=== PATIENT | female | born 1960 | race Caucasian/White ===

== ENCOUNTER 2021-08-09 17:25 | Emergency (ER) | payer OTHER, SELFPAY ==
--- NOTE | ~2021-08-09 | XR_ITS ---
EXAMINATION: XR chest 2V CLINICAL INFORMATION: Chest pain COMPARISON: No prior chest x-ray available in our system for comparison at the time of this dictation. TECHNIQUE: XR chest 2V Lungs and Susanna: Both lungs are clear. Pleura: Normal. Costophrenic angles are sharp. No pneumothorax. Heart: The heart is normal in size. Mediastinum: The mediastinum is within normal limits.. Bones: Skeletal structures included are normal for patient's age. XR/XR chest 2V IMPRESSION: Normal chest x-ray.
[2021-08-09 17:33] VITALS: BP 165/82; PULSE 79; RESP 16; TEMP 36.7; O2SAT 100; BMI 27.1
--- NOTE | 2021-08-09 17:33 | ECG_ITS ---
Test Reason : CP Blood Pressure : / mmHG Vent. Rate : 077 BPM Atrial Rate : 077 BPM P-R Int : 170 ms QRS Dur : 088 ms QT Int : 374 ms P-R-T Axes : 065 024 050 degrees QTc Int : 423 ms Normal sinus rhythm Normal ECG No previous ECGs available Referred By: Generic ED Physician Electronically Signed By:NOREEN DELA CRUZ MD
--- NOTE | 2021-08-09 18:01 | ED.CHESTPAIN ---
HPI - Chest Pain General Chief Complaint: Chest Pain Stated Complaint: chest tightness/ Time Seen by Provider: 08/09/21 17:40 Source: patient Mode of arrival: ambulatory Limitations: no limitations History of Present Illness HPI narrative: Patient presents to the emergency department for evaluation of chest pain. She reports just prior to arrival she was at the grocery store when she developed a sudden onset of chest tightness and burning that she felt radiates to the right side of her jaw/neck/ear. At that time her pain was 10/10. Currently she reports 5/10 chest pain described as a diffuse anterior burning. She does state that she had not had the previous severe pain she would not be overly concerned about the pain she is feeling at this time. Earlier this week she was experiencing palpitations, was seen by her primary care provider, and states that it was thought to be secondary to anxiety. She denies feeling anxious at the time her symptom onset today. She also reports that she began taking hydrochlorothiazide 1 month ago and is uncertain whether this has anything to do with her symptoms. Denies recently feeling sick, fevers, chills, nasal congestion, sore throat, ear pain, shortness of breath, difficulty breathing, nausea, vomiting, abdominal pain, dysuria, urinary frequency, numbness or tingling in the extremities, pain in the extremities, generalized weakness. Related Data Allergies Allergy/AdvReac Type Severity Reaction Status Date / Time No Known Allergies Allergy Verified 08/09/21 17:59 Review of Systems Review of Systems: Constitutional : No Weight loss, No Fever, No Chills ENT/Mouth :? No sore throat, No Rhinorrhea Eyes: No Eye Pain, No Swelling Cardiovascular : pos Chest Pain, no SOB, no Dyspnea on Exertion, No Orthopnea, No Edema, No Palpitations Respiratory : No Cough, No Sputum Gastrointestinal : pos Nausea, No Vomiting, No Diarrhea, No abdominal Pain, No Hematochezia, No Melena Genitourinary : No Dysuria, No Urinary Frequency Musculoskeletal : No joint pain, No Myalgias, No Joint Swelling Skin : No Skin Lesions, No rash Neuro : No Weakness, No Numbness, No Dizziness, No Headache Psych : No Anxiety/Panic, No Depression Heme/Lymph: No Bruising, No Lymphadenopathy Endocrine : No Polyuria, No Polydipsia Yes all other systems are reviewed and are negative PMFSH Past Medical History Attestation statement: The following information was validated with the patient. Social History Social History Advance Directives: Yes Advance Directives Information Provided: No Advance Directives on File: No Patient : No Physical Exam Vital Signs: Vital Signs: Last Vital Signs Temp 98.0 F 08/09/21 17:33 Pulse 74 08/09/21 19:05 Resp 13 08/09/21 19:05 BP 144/78 H 08/09/21 19:05 Pulse Ox 100 08/09/21 19:05 BMI result Body Mass Index 27.1 Vital signs have been reviewed and appeared to be correct. Hypertensive? Heart rate normal.? Respiration rate normal. Temperature normal.? Oxygen saturation normal. Appearance: Alert.?Oriented to person, place and time. No acute distress.?Normal affect. Eyes: Pupils equal, round and reactive to light.? ENT: Pharynx normal.?? Neck: Normal inspection.? Neck supple.?? CVS: Heart sounds normal. Normal heart rate and rhythm.? Pulses normal.?? Respiratory: No respiratory distress.? Lung sounds clear to auscultation bilaterally?? Abdomen: Soft and non-tender. Normoactive bowel sounds. ?? Skin: Skin warm and dry.? Normal skin color.? ?? Extremities: No lower extremity edema.? Neuro: Moves all extremities spontaneously. Sensation intact bilaterally. CN II-XII intact. No focal neuro deficits. Ambulates with normal steady gait. Course Course Course Narrative: Patient is a 61-year-old with a past medical history of hypertension, hyperlipidemia, GERD presenting for evaluation of sudden onset chest pain. Will obtain CBC to evaluate for leukocytosis/ anemia, CMP to evaluate for abnormal electrolytes /abnormal renal function/ abnormal hepatic function, EKG and troponin to evaluate for ischemia/ACS. Chest x-ray to evaluate for consolidation/ infiltrate/ mass/ pulmonary congestion. Will trial Maalox with lidocaine for pain at this time. Reevaluation(s) Reevaluation #1: CBC is overall unremarkable. BMP is normal. Troponin <3.5, EKG reveals normal sinus rhythm no acute concerns for ischemia, HEART score 3. Will obtain delta troponin. Chest x-ray reveals no acute cardiopulmonary abnormalities. Time: 18:50 Reevaluation #2: Repeat troponin <3.5, therefore delta <50%, unlikely to be ACS. She reports pain has improved after receiving Maalox with lidocaine. She reports some mild discomfort that ?feels like indigestion . She remains hemodynamically stable, no additional concerns at this time. Respirations are regular even and nonlabored. I discussed all findings with patient and her . Advised that her symptoms may be secondary to acid reflux, however, given her past medical history of blood pressure and high cholesterol she should seek outpatient follow-up with her primary care provider as she may require further cardiac studies such as stress test. Discussed plan of care for discharge home, outpatient follow-up with her primary care provider within 1-3 days, advised reasons to return back to the emergency department, all questions were answered, and she was stable at the time of discharge. Time: 20:32 [facility] - Chest Pain Medical Records Data Attestation: I reviewed the patient's medical records. Lab Data Attestation: I reviewed the patient's lab results. Result diagrams: 08/09/21 17:59 08/09/21 17:59 Labs: Lab Results 08/09/21 08/09/21 08/09/21 Range/Units 17:59 17:59 17:59 WBC 6.1 (4.8-10.8) X10*3/uL RBC 4.24 (4.20-5.50) X10*6/uL Hgb 13.3 (12.0-16.0) g/dl Hct 37.7 (37.0-47.0) % MCV 88.9 (80.0-98.0) fL MCH 31.4 (27.0-33.0) pg MCHC 35.3 H (31.0-35.0) g/dl RDW 11.9 (11.0-16.0) % Plt Count 273 (160-400) X10*3/uL MPV 9.2 L (9.4-12.3) fL Immature Gran % (Auto) 0.2 (0.0-0.4) % Neut % (Auto) 47.7 (45-73) % Lymph % (Auto) 40.0 (20-40) % Bracken % (Auto) 9.0 (2-11) % Eos % (Auto) 2.3 (0-4) % Baso % (Auto) 0.8 (0-2) % Lymph # (Auto) 2.5 (1.2-4.9) X10*3/uL Bracken # (Auto) 0.6 (0.1-1.2) X10*3/uL Eos # (Auto) 0.1 (0.0-0.4) X10*3/uL Baso # (Auto) 0.1 (0.0-0.2) X10*3/uL Abs Immat Gran (auto) 0.01 (0.00-0.03) X10*3/uL Absolute Neuts (auto) 2.9 (2.0-8.3) x10*3/uL Absolute Nucleated RBC 0.000 (0.0-0.012) X10*3/uL Nucleated RBC % (auto) 0.0 (0.0-0.2) /100WBC Sodium 138 (135-145) mmol/L Potassium 3.4 (3.3-5.1) mmol/L Chloride 102 (96-108) mmol/L Carbon Dioxide 25 (22-29) mmol/L Anion Gap 14 (12-20) BUN 16 (9-16) mg/dL Creatinine 0.75 (0.5-1.4) mg/dL Estim Creat Clear Calc 68.9 Estimated GFR > 60 Random Glucose 101 (60-115) mg/dL Calcium 9.6 (8.4-10.2) mg/dL Troponin I High Sens < 3.5 (<3.5-17.0) ng/L 08/09/21 Range/Units 19:44 WBC (4.8-10.8) X10*3/uL RBC (4.20-5.50) X10*6/uL Hgb (12.0-16.0) g/dl Hct (37.0-47.0) % MCV (80.0-98.0) fL MCH (27.0-33.0) pg MCHC (31.0-35.0) g/dl RDW (11.0-16.0) % Plt Count (160-400) X10*3/uL MPV (9.4-12.3) fL Immature Gran % (Auto) (0.0-0.4) % Neut % (Auto) (45-73) % Lymph % (Auto) (20-40) % Bracken % (Auto) (2-11) % Eos % (Auto) (0-4) % Baso % (Auto) (0-2) % Lymph # (Auto) (1.2-4.9) X10*3/uL Bracken # (Auto) (0.1-1.2) X10*3/uL Eos # (Auto) (0.0-0.4) X10*3/uL Baso # (Auto) (0.0-0.2) X10*3/uL Abs Immat Gran (auto) (0.00-0.03) X10*3/uL Absolute Neuts (auto) (2.0-8.3) x10*3/uL Absolute Nucleated RBC (0.0-0.012) X10*3/uL Nucleated RBC % (auto) (0.0-0.2) /100WBC Sodium (135-145) mmol/L Potassium (3.3-5.1) mmol/L Chloride (96-108) mmol/L Carbon Dioxide (22-29) mmol/L Anion Gap (12-20) BUN (9-16) mg/dL Creatinine (0.5-1.4) mg/dL Estim Creat Clear Calc Estimated GFR Random Glucose (60-115) mg/dL Calcium (8.4-10.2) mg/dL Troponin I High Sens < 3.5 (<3.5-17.0) ng/L Imaging Data Chest x-ray: Radiologist's impression: XR/XR chest 2V IMPRESSION: Normal chest x-ray. ECG Data ECG #1: Attestation: I personally reviewed and interpreted this ECG as follows: ECG interpretation date: 08/09/21 ECG interpretation time: 20:35 Interpretation: Rate: 77 Rhythm:? Normal sinus rhythm [place]:? Normal Normal P waves.? Normal BEBA.?? Normal QRS complex.?? ST T wave :??No ST elevation. No ST depression. No T-wave inversion. qTC: 423 The study has been interpreted contemporaneously by me. Scores Heart Score History: -1- moderately suspicious ECG: -0- normal Age: -1- >45 - <65 Risk factory: -1- 1 or 2 risk factors Troponin: -0- < or = normal limit Score: 3 Risk: 1.7% Discharge Plan Discharge Clinical Impression: Chest pain Patient Disposition: Home, Self-Care Instructions: Chest Pain (ED) Additional Instructions: As we discussed your EKG today was normal. Your blood work is was normal. We checked your cardiac markers, Troponin, twice and they were both normal. You should return to the emergency department with any new or worsening symptoms or concerns. Please contact your primary care provider to schedule follow-up visit within 1-2 days. Referrals: Cecelia Mott NP [Primary Care Provider] - 2 days Discharge Date/Time: 08/09/21 20:49
[2021-08-09 18:03] LABS: MANUAL DIFF FLAG NO
[2021-08-09 18:07] LABS: Basophils Absolute Auto 0.1 X10*3/uL (0.0-0.2); Basophils Percent Auto 0.8 % (0-2); Eosinophils Absolute Auto 0.1 X10*3/uL (0.0-0.4); Eosinophils Percent Auto 2.3 % (0-4); Hematocrit 37.7 % (37.0-47.0); Hemoglobin 13.3 g/dl (12.0-16.0); Imm Gran Abs Auto 0.01 X10*3/uL (0.00-0.03); Imm Gran Pct Auto 0.2 % (0.0-0.4); Lymphocytes Absolute Auto 2.5 X10*3/uL (1.2-4.9); Mean Corpuscular HGB Conc 35.3 g/dl (31.0-35.0); Mean Corpuscular Hemoglobin 31.4 pg (27.0-33.0); Mean Corpuscular Volume 88.9 fL (80.0-98.0); Mean Platelet Volume 9.2 fL (9.4-12.3); Monocytes Absolute Auto 0.6 X10*3/uL (0.1-1.2); Neutrophils Absolute Auto 2.9 x10*3/uL (2.0-8.3); Neutrophils Percent Auto 47.7 % (45-73); Platelet Count 273 X10*3/uL (160-400); Red Blood Count 4.24 X10*6/uL (4.20-5.50); Red Cell Distribution Width 11.9 % (11.0-16.0); White Blood Count 6.1 X10*3/uL (4.8-10.8)
[2021-08-09 18:19] LABS: Anion Gap 14 (12-20); Blood Urea Nitrogen 16 mg/dL (9-16); Calcium 9.6 mg/dL (8.4-10.2); Carbon Dioxide 25 mmol/L (22-29); Chloride 102 mmol/L (96-108); Creatinine Clr Calc Pharmacy 68.9; Estimated Glomerular Filt Rate > 60; Glucose Random 101 mg/dL (60-115); Potassium 3.4 mmol/L (3.3-5.1); Sodium 138 mmol/L (135-145)
[2021-08-09 18:25] LABS: Troponin-I High Sensitivity < 3.5 ng/L (<3.5-17.0)
[2021-08-09 19:05] VITALS: BP 144/78; PULSE 74; RESP 13; O2SAT 100
[2021-08-09] MEDS: Lidocaine HCl Viscous 2 % 15 ML SOLUTION MUCOUS MEM (19:08)
[2021-08-09] MEDS: Magnesium Hydrox/Alum Hydrox 30 ML ORAL.SUSP PO (19:08)
[2021-08-09 20:11] LABS: Troponin-I High Sensitivity < 3.5 ng/L (<3.5-17.0)
[2021-08-09 20:45] VITALS: BP 130/68; PULSE 68; RESP 16; TEMP 36.6; O2SAT 98
== END 2021-08-09 20:49 | disposition home or self-care (01) ==
PROVIDERS: Nurse Practitioner Family; Emergency Provider Emergency Medicine; PCP Nurse Practitioner
DX: R07.89 Other chest pain (principal); R10.84 Generalized abdominal pain; I10 Essential (primary) hypertension; Z79.899 Other long term (current) drug therapy
CPT/HCPCS: 36415; 71046; 80048; 84484; 85025; 93005; 99284; 99285